=== PATIENT | male | born 1960 | race Caucasian/White ===

== ENCOUNTER 2025-04-15 17:37 | Observation (INO) | payer OTHER, SELFPAY ==
[2025-04-15 13:50] VITALS: BP 141/74
--- NOTE | 2025-04-15 14:20 | ED.GENMED ---
History of Present Illness
General
Chief Complaint: Abnormal Lab Value
Source: patient
Exam Limitations: none
Time Seen by Provider: 04/15/25 14:04
History of Present Illness
History of Present Illness:
65yoM with a history of hypertension, hyperlipidemia, bipolar disorder, NAGA on CPAP, and chronic joint pain on meloxicam presenting with his for evaluation of abnormal outpatient lab work. His psychiatrist ordered lab work 2 days ago and he
was found to have a hemoglobin of 6.9. He was told to go to the ED for evaluation. Last hemoglobin in November of this year was 9.7. He currently feels some lightheadedness but denies any syncope. He has also been experiencing fatigue and
exertional dyspnea for the past several months. His PCP started him on iron pills which are causing his stool to appear dark. He had some blood in his stool several months ago but has not had any recently. He was told to get a colonoscopy but has
not scheduled this yet. Last colonoscopy was about 20 years ago. He has never required a blood transfusion in the past.
Phy Exam
General Physical Exam
General Presentation: well appearing and no apparent distress
General Skin: warm, dry and pale
General Habitus: normal
General Mental: alert
ENT Exam
ENT Exam: normocephalic
Cardiovascular Exam
Cardiovascular Exam: regular rate/rhythm and no murmur
Pulmonary Exam
Pulmonary Exam: lungs clear, no respiratory distress, no rales, no crackles, no rhonchi and no wheezing
Gastrointestinal Exam
Rectal Exam: normal external exam and normal sphincter tone
Stool: other (No significant stool obtained on rectal exam. No ana maria blood.)
Neurological Exam
Neurological Exam: alert
Herndon Coma Scale
Eye Opening: Spontaneous
Verbal Response: Oriented
Motor Response: Obeys Commands
GCS Total Score: 15
Skin Exam
Skin Exam: warm/dry and pallor
Psychiatric Exam
Psychiatric Exam: normal mood/affect
Course
Orders/Labs/Results
Orders:
Orders
04/15/25 14:38
Type+Screen Urgent
Complete Blood Count/With Diff Urgent
Comprehensive Metabolic Panel Urgent
Ferritin Urgent
Comment: ADD ON
Folate Urgent
Comment: ADD ON
Iron Urgent
PTT Urgent
Prothrombin Time Urgent
Total Iron Binding Urgent
Vitamin B12 Urgent
Comment: ADD ON
04/15/25 14:57
ABO2 Urgent
BBK Wristband Number:
Associate notified that ABO2 has been ordered: ATIFF
Date: 04/15/25
Time: 14:45
Scallop Shucker ID: [id number]
04/15/25 Dinner
Low Residue
Low Residue: 1800 saravanan/15 CHO Diabetic
04/15/25 15:07
Blood Bank Products [* Blood Bank Products] Urgent
Blood Bank Products: *Packed RBC Leuko(PRBC's)
Quantity: 1
Transfuse Today: Yes
Reason: Anemia
04/15/25 15:57
Add On- LAB Urgent
Tests Added?: iron, ferritin, transferrin, TIBC, B12, folate
04/15/25 17:11
0.9% Sodium Chloride [Nss (Preservative Free)] 20 ml IV NOW STA
Pantoprazole [Protonix IV] 80 mg IV NOW STA
04/15/25 17:14
Admit/Transfer Patient As Directed
Co-Sign Provider:
Level of Care: Observation services
Assign to:: Medical/Surgical
Physician / Group: Patel Alexis
Diagnosis: symptomatic anemia
PRN Pain Medication Management As Directed
May give lesser potent ordered pain med per pt: Yes
preference::
Protocol:: Medication orders for pain may be administered in a
manner that supports deferring to patient preference
when the pt is:
- Requesting an ordered lesser potent pain medication.
Least to most potent pain medications are defined
as: acetaminophen < NSAID < tramadol < opioids
(morphine, oxycodone, hydromorphone).
- Requesting a lesser dose of the same medication IF
ORDERED.
- Requesting a less intrusive route of administration
if both routes are prescribed by the provider (PO <
IV).
04/15/25 17:16
Code Status As Directed
Resuscitation Status: Full Code
04/16/25 Breakfast
NPO
Allow oral meds: Yes
Allow clear liquids: 4hrs prior to procedure
NPO for procedure after (time): midnight for GI Procedure tomorrow
Comment: may have unrestricted clear liquids up to 4 hrs prior to scheduled proc
Abnormal Lab Results
04/15/25
14:38
RBC 3.50 L 10^6/uL
(4.70-6.10)
Hgb 6.8 L* g/dL
(13.0-18.0)
Hct 23.9 L %
(39.0-52.0)
MCV 68.3 L fL
(80.0-94.0)
MCH 19.4 L pg
(27.0-31.0)
MCHC 28.5 L g/dL
(33.0-37.0)
RDW 18.3 H %
(11.5-14.5)
Chloride 108 H mmol/L
(98-107)
Iron 32 L ug/dl
(49-181)
% Saturation 7 L %
(20-50)
Ferritin 4.2 L ng/ml
(17.9-464.0)
AST 15 L U/L
(17-59)
Crossmatch IS Only See Detail
04/15/25 14:38
04/15/25 14:38
Vital Signs
Initial and Last Documented VS:
Initial Vital Signs
Temp Pulse Resp BP Pulse Ox
98.5 F 56 17 141/74 99
04/15/25 13:50 04/15/25 13:50 04/15/25 13:50 04/15/25 13:50 04/15/25 13:50
Last Documented Vital Signs
Temp Pulse Resp BP Pulse Ox
99.1 F 59 16 143/75 100
04/15/25 18:11 04/15/25 18:11 04/15/25 18:11 04/15/25 18:11 04/15/25 16:17
MDM/Problems Addressed
Differential Diagnosis Includes:
65yoM here with a hemoglobin of 6.9 on outpatient labs. Symptomatic with fatigue, SOB, dizziness. Stools are dark but he takes iron pills. Takes meloxicam daily for pain. VSS. He is pale but well appearing. No significant stool obtained on rectal
exam. Differential diagnosis includes but is not limited to: blood loss anemia/GI bleed, iron deficiency, less likely hemolysis
Initial ED plan: Check CBC, CMP, coags, and type and screen.
*Pulse Oximetry
SaO2: 99
Oxygen Mode of Delivery: Room air
Patient hypoxic: no (99%)
*Critical Care Note
Total Time (30-74mins, 75-104mins- exclusive of procedures): Not Applicable
Update Note
Update Note:
Hemoglobin is 6.8. BUN normal. Consent obtained and 1 unit PRBCs ordered for transfusion. GI consulted and plan is for EGD tomorrow. Patient admitted for further management.
ED Attending Note
-
Portions of this chart may have been created with voice recognition software.� Occasional wrong word or��sound alike� substitutions may have occurred due to the inherent limitations of voice recognition software.
Discharge Plan
Departure
Patient Disposition: Admit
Date of Disposition: 04/15/25
Time of Disposition: 15:51
Presentation/result/management discussed w/ accepting MD/DO: Hospitalist
Discharge Problem:
Symptomatic anemia
Interventions
Interventions:
*Risk Screen - Suicide Last Done: 04/15/25 13:52
*General Assessment Last Done: 04/15/25 13:52
*Neglect/Abuse Screening Last Done: 04/15/25 13:52
*ED COVID-19 Vaccine History Last Done: 04/15/25 13:52
[2025-04-15 14:48] LABS: Hematocrit 23.9 % (39.0-52.0); Hemoglobin 6.8 g/dL (13.0-18.0); Mean Corp Hgb Conc. 28.5 g/dL (33.0-37.0); Mean Corpuscular Volume 68.3 fL (80.0-94.0); Nucleated Red Blood Cells % 0 % (-); Platelet Count 321 10^3/uL (130-400); Red Cell Dist. Width 18.3 % (11.5-14.5)
[2025-04-15 14:55] LABS: INR 1.01; PT 13.8 Sec (11.4-14.6)
[2025-04-15 14:56] LABS: APTT 29.1 Sec (23.4-35.0)
[2025-04-15 14:58] LABS: ALT (SGPT) 14 U/L (0-50); AST (SGOT) 15 U/L (17-59); Albumin 4.0 g/dl (3.5-5.0); Alkaline Phosphatase 58 U/L (38-126); Blood Urea Nitrogen 14 mg/dl (9-20); Calcium 9.4 mg/dl (8.4-10.2); Carbon Dioxide 26 mmol/L (22-30); Chloride 108 mmol/L (98-107); Glucose 90 mg/dl (70-99); Potassium 4.0 mmol/L (3.5-5.1); Sodium 137 mmol/L (135-145); Total Protein 6.4 g/dl (6.3-8.2); eGFR > 60.00
--- NOTE | 2025-04-15 15:53 | HPS.HSE ---
Addendum entered and electronically signed by Patel Alexis MD 04/15/25 17:47:
I spent a total of 77 minutes with the patient or on the floor. More than 50% of this time involved counseling and coordination of care.
Addendum entered and electronically signed by Patel Alexis MD 04/15/25 17:27:
I saw and examined the patient.
The LOAN REPRESENTATIVE or PA's note was reviewed and I agree with the note.
Comment:
65-year-old male with past medical history of hypertension, bulimia, bipolar disorder, sleep apnea, noq-[id number] diabetes mellitus, osteoarthritis on meloxicam came to the hospital with abnormal hemoglobin of 6.8 which was checked on
outpatient labs.� Patient has been noticing intermittent rectal bleeding over the past few months and also noted of recent black stools.� Seen by GI in the ED and plan for EGD tomorrow.� Advised patient to avoid NSAIDs.� Start PPI BID now.�
Transfuse 1 unit blood.� Repeat hemoglobin.� Accu-Cheks, sliding scale.� Hold metformin for now.
General: Well Developed, Well Nourished, No Apparent Distress and Morbidly Obese
HEENT: NormoCephalic, Moist mucous membranes and Atraumatic
Respiratory: Clear and Non Labored Respirations
Cardiac: S1/S2 and Regular Rhythm; No Murmur, Rub or Gallop
GI: Soft, Non Tender, Non Distended and Normal Bowel Sounds; No Organomegaly
Rectal: Deferred by Provider
Genito-urinary: Deferred by me
Musculoskeletal: No Clubbing, No Cyanosis and No Edema
Skin: IV/Catheter Site
Neuro: Awake, AO x 3 and Nonfocal/grossly intact
Psych: Calm
Original Note:
Family Physician
-
Family Physician: Mary Mann
Chief Complaint
-
abnormal out patient labs
History of Present Illness
Patient is a 65-year-old male with past medical history significant for hypertension, BPH, bipolar and GERD who presented to [facility] ED for evaluation of abnormal out patient lab results. Patient states his psychiatrist ordered lab work and was found
to have a hgb 6.8. He was told to go to the ED for evaluation. Patient reports hgb 9.7 in November. He reports some lightheadedness but denies any syncope. He states he has had some increased fatigue and exertional dyspnea, does not really know
timeline of when it started. He also states he recalls some blood in stool back in 08/2024, and nothing recently. Primary care did encourage him to schedule an out patient colonoscopy which he has not done up to this point. Patient on phone
scheduling appointment for next week to have it completed.
Medical History
Past Medical History
Past Medical History: Reports Other
Additional Past Medical History:
hypertension
BPH
bipolar
GERD
osteoarthritis
Past Surgical History: Reports Other
Additional Past Surgical History:
Moh's surgery x3
Social History
Tobacco: Non-smoker
Alcohol: None
Drug: None
Personal:
Living: With Family
Family History
Family History: Not pertinent
Allergies / Home Medications
Allergies reflects when Allergies were last updated in [employer].
Home Medications with original date entered in [employer]
Allergy/Medication List:
Allergies
Allergy/AdvReac Type Severity Reaction Status Date / Time
No Known Allergies Allergy Unverified 04/15/25 13:51
Home Medications
hyaluronate sodium, stabilized 60 mg/3 mL intra-articular syringe (Durolane) 60 mg intra-articular [id number] 04/15/25
lurasidone 40 mg tablet 40 mg PO DAILY 04/15/25
meloxicam 7.5 mg tablet 7.5 mg PO DAILYPRN PRN moderate pain 04/15/25
metformin 500 mg tablet,extended release 24hr (osmotic) 500 mg PO DAILY 04/15/25
metoprolol succinate 50 mg tablet,extended release 24 hr 50 mg PO DAILY 04/15/25
polysaccharide iron complex 150 mg iron capsule (Poly-Iron) 150 mg PO DAILY 04/15/25
propranolol 20 mg tablet 20 mg PO BID 04/15/25
rosuvastatin 10 mg tablet 10 mg PO DAILY 04/15/25
tamsulosin 0.4 mg capsule 0.4 mg PO DAILY 04/15/25
Review of Systems
-
History Source: Patient
Constitutional: Reports Fatigue and Other (lightheadedness )
EENT: Reports No Symptoms
Respiratory: Reports Other (exertional dyspnea )
Cardiac: Reports No Symptoms; Denies Syncope
Abdomen/GI: Reports No Symptoms
: Reports No Symptoms
Musculoskeletal: Reports No Symptoms
Skin: Reports No Symptoms
Neurological: Reports No Symptoms
Endocrine: Reports No Symptoms
Hematologic/Lymphatic: Reports No Symptoms
Psych: Reports No Symptoms
Physical Exam
Vital Signs
Vital Signs
Temp Pulse Resp BP Pulse Ox
98.5 F 55 16 141/74 98
04/15/25 13:50 04/15/25 15:52 04/15/25 15:52 04/15/25 13:50 04/15/25 15:52
Physical Exam
General: Well Developed, Well Nourished, No Apparent Distress and Morbidly Obese
HEENT: NormoCephalic, Moist mucous membranes and Atraumatic
Respiratory: Clear and Non Labored Respirations
Cardiac: S1/S2 and Regular Rhythm; No Murmur, Rub or Gallop
GI: Soft, Non Tender, Non Distended and Normal Bowel Sounds; No Organomegaly
Rectal: Deferred by Provider
Genito-urinary: Deferred by me
Musculoskeletal: No Clubbing, No Cyanosis and No Edema
Skin: IV/Catheter Site
Neuro: Awake, AO x 3 and Nonfocal/grossly intact
Psych: Calm
Laboratory Results
-
04/15/25 14:38
04/15/25 14:38
Laboratory Results
PT 13.8 Sec (11.4-14.6) 04/15/25 14:38
INR 1.01 04/15/25 14:38
APTT 29.1 Sec (23.4-35.0) 04/15/25 14:38
Total Bilirubin 0.3 mg/dl (0.2-1.3) 04/15/25 14:38
AST 15 U/L (17-59) L 04/15/25 14:38
ALT 14 U/L (0-50) 04/15/25 14:38
Alkaline Phosphatase 58 U/L (38-126) 04/15/25 14:38
Data Reviewed
-
Lab Data: Labs Reviewed by me (hgb 6.8, hct 23.9)
Impression/Plan
-
IMPRESSION/PLAN:
#anemia likely 2/2 GI bleed
hgb 6.8, hct 23.9
- Admit to med/surg
- Consult GI
- NPO at midnight for endoscopy
- Protonix IV BID
- 1 unit PRBCs given in ED
- trend H/H
#hypertension
- continue metoprolol and propranolol
#hyperlipidemia
- continue rosuvastatin
#BPH
- continue tamsulosin
#bipolar
- continue lurasidone
#GERD
- IV Protonix
#osteoarthritis
- hold meloxicam
#DM??
- hold metformin
- AccuCheck AC & HS
- SSI
Code status: full code
DVT prophylaxis: SCDs
[2025-04-15 16:00] VITALS: BP 128/75
[2025-04-15 16:17] VITALS: BP 136/71
--- NOTE | 2025-04-15 16:31 | CON.GI ---
Addendum entered and electronically signed by Calixto Olivarez MD 04/15/25 17:25:
I saw and examined the patient.
The THERAPEUTIC RECREATION ASSISTANT or PA's note was reviewed and I agree with the note.
Comment: 65yo male presents with SOB, fatigue, excessive sleep and send in after labs ordered by psychiatrist showed anemia. Hgb 6.8. He reports dark stools, but has been on iron over the last several months. Had Hgb in November reported 9.7. He
has been on meloxicam daily for knee pain over the last year and has been anemic for the last 6 months or so. He had spots of rectal bleeding couple months ago but since resolved. Denies diarrhea, heartburn, dysphagia. Had colonoscopy 19 yrs ago
normal, done for FH CRC in grandfather. No prior EGD. He is scheduled to see Dr Romero next week for colonoscopy. Also takes Aleve occasionally
REC:
Transfuse PRBC
EGD tomorrow to r/o PUD due to NSAIDs. Probably has NSAID ulcer causing anemia.
He already has appt for colonoscopy next week, which I encouraged him to keep
If EGD negative or low risk stigmata for bleeding, he could be d/c'd after procedure
Stop NSAIDs
PPI
Original Note:
Consultation
-
Date/Time Consultation Requested: 04/15/25 1620
Date/Time Consultation Performed: 04/15/25 1630
Requesting Provider: SUJATHA Torres
Performing Provider: CLARI Berry, Calixto Olivarez MD
Reason for Consultation: Anemia
Medical History
Chief Complaint / HPI
Chief Complaint: shortness of breath
History of Present Illness:
Pt is a 65yo with hx HTN, hyperlipidemia, bipolar disorder, NIDDM, sleep apnea with c-pap use, chronic joint pain on Meloxicam use daily with reported hbg 9 range in August and now abnormal OP labs of hbg 6.8 on admission with MCV 68.3. Pt
admits to variable amount of rectal bleeding over last few months and recent black stools with iron use. he also admits to constipation with of iron. He was initially on low dose of 65mg then up to 150mg. Pt does also admits to severe fatigue,
mild dizziness, weakness and shortness of breath. He denies dysphagia, GERD, nausea, vomiting, hematemesis, abdominal pain, diarrhea. Last colonoscopy 19 years ago recalls as normal. Denies prior EGD. Pt also admits to occasional Aleve along wtih
daily Meloxicam. + family hx colon CA in grandfather.
Past Medical History
Past Medical History: HTN, Hypercholesterolemia, NIDDM, Psychiatric (bipolar disorder) and Other (sleep apnea- cpap, chronic joint pain with Meloxicam use )
Past Surgical History: Other (jaw surgery )
Social History
Tobacco: Non-Smoker
Alcohol: None
Drug: None
Personal:
Living: With Family
Employment: Employed
Family History
Family History: Other (grandfather with colon CA)
Allergies / Home Medications
Allergy/AdvReac Type Severity Reaction Status Date / Time
No Known Allergies Allergy Unverified 04/15/25 13:51
�Medication �Instructions �Recorded
hyaluronate sodium, stabilized 60 60 mg intra-articular [id number] 04/15/25
mg/3 mL intra-articular syringe
(Durolane)
lurasidone 40 mg tablet 40 mg PO DAILY 04/15/25
meloxicam 7.5 mg tablet 7.5 mg PO DAILYPRN PRN moderate 04/15/25
pain
metformin 500 mg tablet,extended 500 mg PO DAILY 04/15/25
release 24hr (osmotic)
metoprolol succinate 50 mg 50 mg PO DAILY 04/15/25
tablet,extended release 24 hr
polysaccharide iron complex 150 mg 150 mg PO DAILY 04/15/25
iron capsule (Poly-Iron)
propranolol 20 mg tablet 20 mg PO BID 04/15/25
rosuvastatin 10 mg tablet 10 mg PO DAILY 04/15/25
tamsulosin 0.4 mg capsule 0.4 mg PO DAILY 04/15/25
Review of Systems
-
History Source: Patient and Family
Constitutional: Reports Fatigue
EENT: Reports No Symptoms
Respiratory: Reports Trouble Breathing
Cardiac: Reports No Symptoms
Abdomen/GI: Reports Bloody Stools and Black Stools
: Reports No Symptoms
Musculoskeletal: Reports Other (chronic joint pain with Meloxicam use )
Skin: Reports No Symptoms
Neurological: Reports Dizzy and Weakness
Endocrine: Reports No Symptoms
Hematologic/Lymphatic: Reports Bleeding
Vital Signs
Temp Pulse Resp BP Pulse Ox
98.7 F 58 16 136/71 100
04/15/25 16:17 04/15/25 16:17 04/15/25 16:17 04/15/25 16:17 04/15/25 16:17
Physical Exam
Exam
General: Well Developed, Well Nourished, No Apparent Distress and Other (pale )
HEENT: Normocephalic and Anicteric
Respiratory: Clear
Cardiac: Regular Rhythm
GI: Soft, Non Tender and Non Distended
Musculoskeletal: No Clubbing and No Cyanosis
Skin: Warm and Dry
Neuro: Awake, Alert and AO x 3
Psych: Calm
Results
WBC 7.3 10^3/uL (4.8-10.8) 04/15/25 14:38
Hgb 6.8 g/dL (13.0-18.0) L* 04/15/25 14:38
Hct 23.9 % (39.0-52.0) L 04/15/25 14:38
MCV 68.3 fL (80.0-94.0) L 04/15/25 14:38
Plt Count 321 10^3/uL (130-400) 04/15/25 14:38
Absolute Neuts (auto) 4.5 10^3/uL (1.4-6.5) 04/15/25 14:38
PT 13.8 Sec (11.4-14.6) 04/15/25 14:38
INR 1.01 04/15/25 14:38
APTT 29.1 Sec (23.4-35.0) 04/15/25 14:38
Sodium 137 mmol/L (135-145) 04/15/25 14:38
Potassium 4.0 mmol/L (3.5-5.1) 04/15/25 14:38
Chloride 108 mmol/L (98-107) H 04/15/25 14:38
Carbon Dioxide 26 mmol/L (22-30) 04/15/25 14:38
BUN 14 mg/dl (9-20) 04/15/25 14:38
Creatinine 0.8 mg/dL (0.7-1.3) 04/15/25 14:38
Calcium 9.4 mg/dl (8.4-10.2) 04/15/25 14:38
Total Bilirubin 0.3 mg/dl (0.2-1.3) 04/15/25 14:38
AST 15 U/L (17-59) L 04/15/25 14:38
ALT 14 U/L (0-50) 04/15/25 14:38
Alkaline Phosphatase 58 U/L (38-126) 04/15/25 14:38
Prior GI Procedures:
EGD: none
Colonoscopy: normal 19 years ago
Assessment / Plan
-
Pt is a 65yo with hx HTN, hyperlipidemia, bipolar disorder, NIDDM, sleep apnea with c-pap use, chronic joint pain on Meloxicam use daily with reported hbg 9 range in August and now abnormal OP labs of hbg 6.8 on admission with MCV 68.3. Pt
admits to variable amount of rectal bleeding over last few months and recent black stools with iron use. he also admits to constipation with of iron. He was initially on low dose of 65mg then up to 150mg. Pt does also admits to severe fatigue,
mild dizziness, weakness and shortness of breath. He denies dysphagia, GERD, nausea, vomiting, hematemesis, abdominal pain, diarrhea. Last colonoscopy 19 years ago recalls as normal. Denies prior EGD. Pt also admits to occasional Aleve along with
daily Meloxicam. + family hx colon CA in grandfather.
-symptomatic iron deficiency anemia
-recent rectal bleeding -- red and black stool
-meloxicam daily and occasional Aleve use for joint pains
other med problems:
-HTN
- hyperlipidemia
-bipolar disorder
-sleep apnea with c-pap use
-hx jaw surgery
-family hx colon CA
PLAN:
etiology of anemia related to PUD with hx NSAID use, ectasia, polyp, mass vs other
plan for transfusion today
ok for low residue ADA diet then NPO in AM
EGD in AM if neg pt is scheduled to seen Dr. Nieto on Sunday in office then colon OP on Sunday
NSAID avoidance
cont PPI(was not on prior to admission)
cont PO iron on discharge- can consider OP iron -- to review with OP GI Dr. Nieto
family updated
-
-
Thank you for consultation and allowing me to participate in the patient's care. Please call the mission systems engineer GI physician during the after hours with any questions or concerns.
[2025-04-15 16:39] LABS: Iron 32 ug/dl (49-181)
[2025-04-15 16:49] LABS: Total Iron Binding Capacity 415 ug/dl (261-462)
[2025-04-15 17:29] LABS: Ferritin 4.2 ng/ml (17.9-464.0)
[2025-04-15 18:01] LABS: Folate 10.1 ng/ml (2.76-20); Vitamin B12 415 pg/ml (239-931)
[2025-04-15 18:11] VITALS: BP 143/75
[2025-04-15] MEDS: PROTONIX IV 80 MG IV (18:16)
[2025-04-15] MEDS: NSS (PRESERVATIVE FREE) 20 ML IV (18:16)
[2025-04-15 19:32] VITALS: BMI 36.2
[2025-04-15 19:46] VITALS: BMI 36.2
[2025-04-15 19:50] VITALS: BP 119/72; BP 137/75; BP 147/70; PULSE 59; PULSE 62; PULSE 69
--- NOTE | 2025-04-15 20:00 | PTCARENOTE ---
Pt arrived to rm [id number] from ED, ambulates independently, denying further lightheadedness. Pt oriented to room, call panchal in reach. Orthos positive; BP dropped from 147/70 lying to 137/75 sitting to 119/72 standing, asymptomatic. POC reviewed
with pt and at bedside.
[2025-04-15] MEDS: INDERAL 20 MG PO (20:37)
[2025-04-15] MEDS: FERRLECIT 110 MG IV (20:37)
--- NOTE | 2025-04-15 20:41 | VATNOTE ---
NOTED MD ORDER FOR TWO IV STIES UNTIL STABLE. PT STABLE AFTER RECIEVING PRBC. CURRENTLY ONLY RECIEVING IV IRON. NO CURRENT NEED FOR ADDITIONAL IV ACCESS AT THIS TIME.PCN AWARE. VAT TO FOLLOW.
[2025-04-15 22:26] LABS: Glucose - Point of Care 167 mg/dl (70-99)
[2025-04-15 22:54] VITALS: BP 118/57; BP 125/61; BP 129/57; PULSE 63; PULSE 69; PULSE 74
[2025-04-16] VITALS (14 sets, daily range): BP systolic 15–164; BP diastolic 56–80; PULSE 55–69
[2025-04-16 06:13] LABS: Glucose - Point of Care 119 mg/dl (70-99)
[2025-04-16 06:20] LABS: Hematocrit 23.9 % (39.0-52.0); Hemoglobin 6.8 g/dL (13.0-18.0); Mean Corp Hgb Conc. 28.5 g/dL (33.0-37.0); Mean Corpuscular Volume 69.9 fL (80.0-94.0); Platelet Count 286 10^3/uL (130-400); Red Cell Dist. Width 19.2 % (11.5-14.5)
[2025-04-16 06:33] LABS: Blood Urea Nitrogen 13 mg/dl (9-20); Calcium 8.8 mg/dl (8.4-10.2); Carbon Dioxide 25 mmol/L (22-30); Chloride 111 mmol/L (98-107); Estimated Creatinine Clearance 111 ml/min; Glucose 97 mg/dl (70-99); Potassium 4.2 mmol/L (3.5-5.1); Sodium 139 mmol/L (135-145); eGFR > 60.00
--- NOTE | 2025-04-16 06:34 | PTCARENOTE ---
Pt's Hgb this AM resulted as 6.8. PRODUCE DEPARTMENT MANAGER Jahaira notified, 1 unit PRBCs and repeat H&H 2 hours post-transfusion ordered.
[2025-04-16] MEDS: TOPROL XL 50 MG PO (08:17)
[2025-04-16] MEDS: CRESTOR 10 MG PO (08:17)
[2025-04-16] MEDS: INDERAL 20 MG PO ×2 (08:17→20:05)
[2025-04-16] MEDS: FLOMAX 0.4 MG PO (08:17)
[2025-04-16] MEDS: LATUDA 40 MG PO (08:17)
[2025-04-16] MEDS: PROTONIX IV 40 MG IV ×2 (08:17→20:05)
[2025-04-16 10:04] LABS: Glycohemoglobin (HgbA1c) 5.7 % (4.0-5.6)
--- NOTE | 2025-04-16 11:44 | CM ---
CM reviewed chart, patient seen bedside, initial assessment completed. Patient lives with his in a multiple story home, two steps to enter, bedroom on second floor. Patient denies use of DME, denies VN/SNF history. Patient confirms PCP Mary
Johnathan, pharmacy [facility], confirms prescription coverage. Patient denies insecurities at home. OBS form verbally reviewed, provided with copy, placed in chart. Patient for EGD today. Family to transport home when stable for discharge. CM will
continue to follow for all discharge planning needs.
Plan; home no needs anticipated
--- NOTE | 2025-04-16 11:50 | W.PN.UPDATE ---
Update Note
Progress Note Update
EGD done
Widely patent Schatzki's ring
Irregular z line bx'd r/o Brewer's
Extrinsic compression on lesser curve of stomach
Gastric erythema bx'd r/o HP
Normal duodenum bx'd r/o celiac
REC:
Await path
Keep appt for colonoscopy OP next week with Dr Romero
Check CT abd/pelvis to evaluate extrinsic compression on stomach
Resume diet
[2025-04-16 12:05] LABS: Glucose - Point of Care 92 mg/dl (70-99)
--- NOTE | 2025-04-16 12:10 | W.PN.HOSP.TC ---
Today's Communication/Plan
-
Monitor vital signs see plan
Continue with PPI
CT abdomen/pelvis
Continue to monitor hemoglobin
Continue IV iron
Assessment / Plan
Assessment / Plan
General: Well Developed, Well Nourished, No Apparent Distress and Morbidly Obese
HEENT: NormoCephalic, Moist mucous membranes and Atraumatic
Respiratory: Clear and Non Labored Respirations
Cardiac: S1/S2 and Regular Rhythm; No Murmur
GI: Soft, Non Tender, Non Distended and Normal Bowel Sounds
Musculoskeletal: No Edema
Neuro: Awake, AO x 3 and Nonfocal/grossly intact
Psych: Calm
anemia likely 2/2 GI bleed
hgb 6.8, hct 23.9
Iron deficiency anemia, continue with IV iron
GI following
EGD 04/16 with Schatzki's ring, extrinsic compression in the lesser curvature of the stomach, erythematous mucosa in the gastric body and antrum. Discussed with GI. CT scan abdomen/pelvis
Patient already has scheduled colonoscopy next week
Transfuse another unit PRBC 04/16. Recheck hemoglobin
hypertension
- continue metoprolol and propranolol
hyperlipidemia
- continue rosuvastatin
BPH
- continue tamsulosin
bipolar
- continue lurasidone
GERD
- IV Protonix
osteoarthritis
- hold meloxicam
History of diabetes
A1c 5.7
- hold metformin
- AccuCheck AC & HS
- SSI
Code status: full code
DVT prophylaxis: SCDs
Anticipated Discharge: Within 24 hours
Subjective/Interval History
-
Date of Service: April 16, 2025
Denies pain
Objective Data
-
Labs:
Laboratory Results
04/16/25 04/16/25
05:24 06:31
WBC 7.2
Hgb 6.8 L* Pending
Hct 23.9 L Pending
Plt Count 286
Sodium 139
Potassium 4.2
Chloride 111 H
Carbon Dioxide 25
BUN 13
Creatinine 0.9
Glucose 97
Calcium 8.8
Vital Signs:
Vital Signs
Temp Pulse Resp BP Pulse Ox
99.1 F 52 15 143/70 97
04/16/25 12:00 04/16/25 12:00 04/16/25 12:00 04/16/25 10:28 04/16/25 12:00
I&O
04/15/25 04/16/25 04/17/25
06:59 06:59 06:59
Intake Total 250 / 250 250 / 250
Balance 250 / 250 250 / 250
[2025-04-16] MEDS: OMNIPAQUE 50 ML PO (12:45)
[2025-04-16] MEDS: FERRLECIT 110 MG IV (13:02)
[2025-04-16 14:01] LABS: Hematocrit 26.7 % (39.0-52.0); Hemoglobin 7.8 g/dL (13.0-18.0)
[2025-04-16] MEDS: XANAX 0.25 MG PO (14:30)
[2025-04-16 17:26] LABS: Glucose - Point of Care 85 mg/dl (70-99)
[2025-04-16] MEDS: ZOSYN 50 IV (18:25)
[2025-04-16] MEDS: NSS (PRESERVATIVE FREE) 10 ML IV (20:05)
[2025-04-16 21:26] LABS: Glucose - Point of Care 130 mg/dl (70-99)
[2025-04-17] MEDS: ZOSYN 50 IV ×2 (00:37→06:09)
[2025-04-17 07:59] VITALS: BP 115/62
[2025-04-17 08:05] LABS: Hematocrit 27.0 % (39.0-52.0); Hemoglobin 8.0 g/dL (13.0-18.0); Mean Corp Hgb Conc. 29.6 g/dL (33.0-37.0); Mean Corpuscular Volume 70.3 fL (80.0-94.0); Nucleated Red Blood Cells % 0 % (-); Platelet Count 314 10^3/uL (130-400); Red Cell Dist. Width 19.9 % (11.5-14.5)
[2025-04-17 08:07] LABS: Glucose - Point of Care 107 mg/dl (70-99)
[2025-04-17] MEDS: LATUDA 40 MG PO (08:59)
[2025-04-17] MEDS: TOPROL XL 50 MG PO (09:00)
[2025-04-17] MEDS: INDERAL 20 MG PO (09:00)
[2025-04-17] MEDS: FLOMAX 0.4 MG PO (09:01)
[2025-04-17] MEDS: CRESTOR 10 MG PO (09:03)
[2025-04-17] MEDS: NSS (PRESERVATIVE FREE) 10 ML IV (09:03)
[2025-04-17] MEDS: PROTONIX IV 40 MG IV (09:04)
--- NOTE | 2025-04-17 10:06 | W.PN.GI.CBS2 ---
Addendum entered and electronically signed by Sandy Mario Do, MD 04/17/25 13:41:
I saw and examined the patient.
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
Comment: He denies abd pain. Tolerated diet. Has OP FU with Dr Romero next week. Ok for hosp d/c today. GI will sign off please call for ?
Original Note:
Today's Communication / Plan
-
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
etiology of anemia unclear- EGD as noted no ulcer but ext compression
follow up Ct with soft tissue nodule adjacent to pancreatic head and diverticulitis
reviewed with patient and given copy to follow up with PCP and GI next week
hbg up to [address] Alexis for abx on discharged
discussed with patient with diverticulitis usually hold colonoscopy for a few week but would proceed with office visit to review on Sunday
NSAID avoidance
cont PO iron on discharge- can consider OP iron
reviewed with nursing
advised to call next week to review biopsy results and any other questions
Assessment / Plan
-
Pt is a 65yo with hx HTN, hyperlipidemia, bipolar disorder, NIDDM, sleep apnea with c-pap use, chronic joint pain on Meloxicam use daily with reported hbg 9 range in August and now abnormal OP labs of hbg 6.8 on admission with MCV 68.3. Pt
admits to variable amount of rectal bleeding over last few months and recent black stools with iron use. he also admits to constipation with of iron. He was initially on low dose of 65mg then up to 150mg. Pt does also admits to severe fatigue,
mild dizziness, weakness and shortness of breath. He denies dysphagia, GERD, nausea, vomiting, hematemesis, abdominal pain, diarrhea. Last colonoscopy 19 years ago recalls as normal. Denies prior EGD. Pt also admits to occasional Aleve along with
daily Meloxicam. + family hx colon CA in grandfather.
04/16/25 CT Abd/pel W Iv And Oral Contr
Findings of acute uncomplicated diverticulitis along the proximal/mid transverse colon.
Mild prostatomegaly. There are bladder wall is mildly thickened which is likely secondary to underdistention although may represent an element of chronic outlet obstruction.
There is a soft tissue nodule within the right upper quadrant adjacent to the pancreatic head/duodenum may represent a reactive lymph node. Consider follow-up to ensure resolution.
04/16/25 EGD montes - Z-line irregular, at the gastroesophageal junction. Biopsied.- Widely patent Schatzki ring.
- Extrinsic compression in the lesser curvature of the stomach.
- Erythematous mucosa in the gastric body and antrum. Biopsied.
- Normal examined duodenum. Biopsied.
-symptomatic iron deficiency anemia
-recent rectal bleeding -- red and black stool
-meloxicam daily and occasional Aleve use for joint pains
-EGD with extrinsic compression lesser curvature of stomach
-CT with uncomplicated diverticulitis and nodule RUQ adjancent to pancreatic head ? node
-prostatomegaly
other med problems:
-HTN
- hyperlipidemia
-bipolar disorder
-sleep apnea with c-pap use
-hx jaw surgery
-family hx colon CA
PLAN:
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
etiology of anemia unclear- EGD as noted no ulcer but ext compression
follow up Ct with soft tissue nodule adjacent to pancreatic head and diverticulitis
reviewed with patient and given copy to follow up with PCP and GI next week
hbg up to [address] Alexis for abx on discharged
discussed with patient with diverticulitis usually hold colonoscopy for a few week but would proceed with office visit to review on Sunday
NSAID avoidance
cont PO iron on discharge- can consider OP iron
reviewed with nursing
advised to call next week to review biopsy results and any other questions
Subjective
Subjective
Date of Service: April 17, 2025
pt feeling better asking about disharge, denies current abdominal pain, tolerating diet no complaints
Objective
Data Reviewed
Laboratory Data:
Laboratory Results
04/17/25 07:45
04/16/25 05:24
Laboratory Results
PT 13.8 Sec (11.4-14.6) 04/15/25 14:38
INR 1.01 04/15/25 14:38
APTT 29.1 Sec (23.4-35.0) 04/15/25 14:38
Total Bilirubin 0.3 mg/dl (0.2-1.3) 04/15/25 14:38
AST 15 U/L (17-59) L 04/15/25 14:38
ALT 14 U/L (0-50) 04/15/25 14:38
Alkaline Phosphatase 58 U/L (38-126) 04/15/25 14:38
Vital Signs and I&O:
Vital Signs
Temp Pulse Resp BP Pulse Ox
98.5 F 60 20 115/62 98
04/17/25 07:59 04/17/25 07:59 04/17/25 07:59 04/17/25 07:59 04/17/25 07:59
I&O
04/16/25 04/17/25 04/18/25
06:59 06:59 06:59
Intake Total 250 / 250 0 / 1790
Balance 250 / 250 1789 / 1789
Physical Exam
Physical Exam
HEENT: Anicteric and Moist mucous membranes
Cardiology: Normal Sinus Rhythm
Pulmonary: Clear
GI: Soft, Non Distended and Non Tender
Extremities: No Edema
Neuro: Non Focal
--- NOTE | 2025-04-17 11:09 | W.PN.HOSP.TC ---
Addendum entered and electronically signed by Patel Alexis MD 04/17/25 15:09:
Time of discharge 38 minutes
Original Note:
Today's Communication/Plan
-
Monitor vital signs see plan
Discharge today
Patient follow-up with his outpatient GI
Discharge on p.o. Augmentin
PPI
Assessment / Plan
Assessment / Plan
General: Well Developed, Well Nourished, No Apparent Distress and Morbidly Obese
HEENT: NormoCephalic, Moist mucous membranes and Atraumatic
Respiratory: Clear and Non Labored Respirations
Cardiac: S1/S2 and Regular Rhythm; No Murmur
GI: Soft, Non Tender, Non Distended and Normal Bowel Sounds
Musculoskeletal: No Edema
Neuro: Awake, AO x 3 and Nonfocal/grossly intact
Psych: Calm
anemia likely 2/2 GI bleed
hgb 6.8, hct 23.9
Iron deficiency anemia, continue with IV iron
GI following
EGD 04/16 with Schatzki's ring, extrinsic compression in the lesser curvature of the stomach, erythematous mucosa in the gastric body and antrum. Discussed with GI. CT scan abdomen/pelvis with diverticulitis. Continue with Zosyn. Discharged on
p.o. Augmentin. Patient will follow-up with his outpatient GI and likely colonoscopy will need to be held. Discussed with GI. Hemoglobin up to 8. Patient will get follow-up CT with soft tissue nodule adjacent to pancreatic head
Patient already has scheduled colonoscopy next week
Transfuse another unit PRBC 04/16. Hemoglobin now 8
hypertension
- continue metoprolol and propranolol
hyperlipidemia
- continue rosuvastatin
BPH
- continue tamsulosin
bipolar
- continue lurasidone
GERD
- IV Protonix
osteoarthritis
- hold meloxicam
History of diabetes
A1c 5.7
- hold metformin
- AccuCheck AC & HS
- SSI
Code status: full code
DVT prophylaxis: SCDs
Anticipated Discharge: Today
Subjective/Interval History
-
Date of Service: April 17, 2025
Denies pain
Objective Data
-
Labs:
Laboratory Results
04/17/25
07:45
WBC 10.2
Hgb 8.0 L
Hct 27.0 L
Plt Count 314
Vital Signs:
Vital Signs
Temp Pulse Resp BP Pulse Ox
98.5 F 60 20 115/62 98
04/17/25 07:59 04/17/25 07:59 04/17/25 07:59 04/17/25 07:59 04/17/25 07:59
I&O
04/16/25 04/17/25 04/18/25
06:59 06:59 06:59
Intake Total 250 / 250 1789 / 1789
Balance 250 / 250 1789 / 1789
--- NOTE | 2025-04-17 11:17 | W.DCSUMMARY ---
Discharge Summary
Discharge Data
Date of Admission: 04/15/25
Date of Discharge: 04/17/25
-
Pending Results: No
Hospital Course
65-year-old male with past medical history of BPH, osteoarthritis, GERD, hyperlipidemia, hypertension came to the hospital with anemia with hemoglobin of 6.8. Patient required multiple blood transfusion on this hospitalization. He was also very
low in iron so was started on IV iron which was later transitioned to p.o. iron prior to discharge. EGD was done by GI which showed Schatzki ring and extrinsic compression in the lesser curvature of the stomach. Patient then later got CT scan of
the abdomen/pelvis which showed diverticulitis. Patient was then started on IV antibiotic which was later transitioned to p.o. antibiotics prior to discharge. It was determined the patient's symptoms could likely be from diverticulitis along with
possible blood loss resulting in anemia. Patient already had scheduled colonoscopy with gastroenterology which seems like will have to wait given his diverticulitis. He was instructed to follow-up with GI closely outpatient. He was also
instructed to get repeat CT scan to ensure resolution of soft tissue nodule adjacent to pancreatic head. Once his symptoms continue to improve, he was then discharged home with instructions to follow-up with all his physicians outpatient.
Discharge Plan
-
Patient Disposition: Home (Routine Discharge)
Discharge Diagnosis/Procedures: Symptomatic iron deficiency anemia
Acute diverticulitis
CT with soft tissue nodule adjacent to pancreatic head
Diet: Low Residue
Activity: As tolerated
Driving Restrictions: As prior to admission
Bathing Restrictions: None
Blood Work: CBC next week with primary care provider
Activity Restrictions/Additional Instructions:
Follow-up CT abdomen/pelvis is needed
Referrals:
Calixto Olivarez MD [Active, Gastroenterology]
Referral Note: call next week to review biopsy results-- call for any other questions or problems
Mary Mann MD [Family Provider] - in less than 1 week
Ace Bonds MD [Non-Admitting Privileges, Surgical]
Referral Note: follow up with Dr. bonds on Sunday--- please take copy of work up completed during admission including EGD and CT for continued workup with MD
Additional Discharge Medication Instructions: will need follow up on Ct scan with nodule/node upper abdomen-- copy of CT given to patient to review in follow up visit
Prescriptions:
New
pantoprazole [Protonix] 40 mg tablet,delayed release (DR/EC)
40 mg PO DAILY Qty: 30 0RF
ferrous sulfate 325 mg (65 mg iron) tablet
325 mg PO DAILY Qty: 30 0RF
amoxicillin-pot clavulanate 875-125 mg tablet
1 tab PO Q12H Qty: 24 0RF
Probiotic 10 billion cell capsule
10,000 mmu cells PO DAILY Qty: 15 0RF
Continued
metoprolol succinate 50 mg Tablet Extended Release 24 Hr
50 mg PO DAILY
polysaccharide iron complex [Poly-Iron] 150 mg iron capsule
150 mg PO DAILY
tamsulosin 0.4 mg Capsule
0.4 mg PO DAILY
propranolol 20 mg Tablet
20 mg PO BID
rosuvastatin 10 mg Tablet
10 mg PO DAILY
metformin 500 mg Tablet Extended Release 24hr
500 mg PO DAILY
lurasidone 40 mg Tablet
40 mg PO DAILY
Durolane 60 mg/3 mL syringe
60 mg INTRA-ARTICULAR [id number]
Discontinued
meloxicam 7.5 mg Tablet
7.5 mg PO DAILYPRN PRN (Reason: moderate pain)
Discharge Orders:
Discharge Patient (As Directed); Ordered 04/17/25
Ordered By: Patel Alexis
Discharge Date and Time
Print Language: THAI
--- NOTE | 2025-04-17 11:29 | CM ---
Chart reviewed. Patient stable for d/c today
Family will transport
No CM needs at this time
Plan: Home, no needs
== END 2025-04-17 16:03 | disposition home or self-care (01) ==
LOC: 4 WEST ACU 17:37
PROVIDERS: Nurse Practitioner Family; Physician Assistant; ADMITTING PHYSICIAN Internal Medicine; CONSULT PHYSICIAN Specialist; EMERGENCY PHYSICIAN Emergency Medicine; FAMILY PHYSICIAN General Practice
PROC: 30233N1 Transfusion of Nonautologous Red Blood Cells into Peripheral Vein, Percutaneous Approach (ICD-10-PCS; 2025-04-15)
PROC: 0DB48ZX Excision of Esophagogastric Junction, Via Natural or Artificial Opening Endoscopic, Diagnostic (ICD-10-PCS; 2025-04-16)
PROC: 0DB78ZX Excision of Stomach, Pylorus, Via Natural or Artificial Opening Endoscopic, Diagnostic (ICD-10-PCS; 2025-04-16)
PROC: 0DB98ZX Excision of Duodenum, Via Natural or Artificial Opening Endoscopic, Diagnostic (ICD-10-PCS; 2025-04-16)
PROC: 0DB68ZX Excision of Stomach, Via Natural or Artificial Opening Endoscopic, Diagnostic (ICD-10-PCS; 2025-04-16)
DX: D50.9 Iron deficiency anemia, unspecified (principal); K57.33 Diverticulitis of large intestine without perforation or abscess with bleeding; I10 Essential (primary) hypertension; F31.9 Bipolar disorder, unspecified; G47.33 Obstructive sleep apnea (adult) (pediatric); E11.9 Type 2 diabetes mellitus without complications; M19.90 Unspecified osteoarthritis, unspecified site; N40.0 Benign prostatic hyperplasia without lower urinary tract symptoms; K21.9 Gastro-esophageal reflux disease without esophagitis; Z79.84 Long term (current) use of oral hypoglycemic drugs; G89.29 Other chronic pain; E78.00 Pure hypercholesterolemia, unspecified; K59.00 Constipation, unspecified; Z80.0 Family history of malignant neoplasm of digestive organs; K22.2 Esophageal obstruction; K31.89 Other diseases of stomach and duodenum; K22.89 Other specified disease of esophagus
CPT/HCPCS: 43239; 36430; 74177; 80048; 80053; 82607; 82728; 82746; 82962; 83036; 83540; 83550; 85014; 85018; 85025; 85027; 85610; 85730; 86850; 86900; 86901; 86920; 88305; 88342; 99285; G0378; J2916; P9016; Q9967

== ENCOUNTER → 2025-05-01 16:43 | Outpatient (REF) | payer OTHER, SELFPAY | LOC: RAD 16:43 | PROVIDERS: ATTENDING PHYSICIAN Surgery; FAMILY PHYSICIAN General Practice | DX: C18.7 Malignant neoplasm of sigmoid colon (principal) | CPT/HCPCS: 71260; Q9967 ==